=== PATIENT | female | born 1990 | race Caucasian/White ===

== ENCOUNTER 2017-11-15 00:30 | Inpatient (IN) | payer OTHER, MEDICAID, SELFPAY ==
[2017-11-14 22:41] VITALS: BMI 25.5
[2017-11-15] MEDS: Lactated Ringers 1,000 ML 50 ML IV ×3 (00:50→03:06)
[2017-11-15 01:07] LABS: Hematocrit 31.6 % (37-47); Hemoglobin 10.4 g/dl (12.0-15.0); Mean Corp Hgb Conc 32.9 g/gl (32-36); Mean Corpuscular Hgb 27.2 pg (27.0-32.0); Mean Corpuscular Volume 82.5 fL (81-99); Mean Platelet Vol. 10.8 fl (6.2-12.0); Platelet Count 176 K/mm3 (150-450); RBC Distribution Width SD 38.4 fl (35.1-43.9); Red Blood Count 3.83 M/mm3 (4.2-5.4); White Blood Count 12.6 K/mm3 (4.4-11.0)
[2017-11-15 01:09] LABS: Scan Indicated on CBC? Y/N NO
[2017-11-15] MEDS: fentaNYL-bupivacaine (epidural) 100 ML BAG EPIDURAL (02:12)
--- NOTE | 2017-11-15 03:07 | PCM.HP.OB ---
- Problem List (1) Postablative hypothyroidism Status: Chronic History Date of Admission: 11/15/17 Final DEVON: 11/17/17 Final DEVON Source: US <20 weeks Gestational age: 39 Weeks and 5 Days History of this : This is a 27 year-old, G [3], P [1], at 39 weeks gestational age presenting to triage reporting regular ctx q 2-3 minutes apart and worsening in strength and intensity. Patient was found to be 4-5cm with BBOW and requesting epidural. She denies any other complaints. Allergies latex Allergy (Verified 11/14/17 22:43) Hives Home Medications: Home Medications Levothyroxine [Synthroid] 112 mcg PO QWEEK 11/14/17 Levothyroxine [Synthroid] 224 mcg PO DAILY 11/14/17 Vits [Prenatabs FA ] 1 tab PO DAILY 11/14/17 Smoking Status: Never smoker Alcohol: None Number of Fetus(es): 1 Heart Tracin baseline, moderate variability, + accels, rare variable and early decels noted TOCO Analysis: Ctx q 2-5 minutes on tocometer, palpate moderate to strong in intensity History Past Pregnancies: Past Pregnancies Delivery Date Name GA/Weeks Outcome Route Weight Gender Labor Length Anesthesia Delivery Location Provider FOB 2012 Term Male 12 hours Epidural Labs: GBS Neg, H/H = 13.7/41.0 -->10.9/33.6, 1 hour GCT = 61, TSH = 0.322 (3rd trimester), FT4 = 1.5 (3rd trimester), Syphilis Screen = NR, Rubella = Immune, HepBsAg = Neg, HIV = NR, A+ bloodtype, Abs = Neg, GC/CT = Neg/Neg, Trich = Neg, Urine Culture = Neg, Urine Tox = Neg, Expected Delivery Method: Spontaneous Vaginal Describe any other labor & delivery plans:: Epidural planned Number of Visits: 15 Review of Systems Constitutional: Denies: Chills, Fever, Weight Change HEENT: Denies: Head Aches, Sinus Congestion, Sinus Drainage Cardiovascular: Denies: Chest Pain, Palpitations Respiratory: Denies: Cough, Shortness of breath at rest, Sputum production Gastrointestinal: Reports: Nausea. Denies: Abdominal Pain, Vomiting Genitourinary: Denies: Dysuria Gynecological: Denies: Vaginal discharge Musculoskeletal: Denies: Joint Pain, Joint Tenderness Skin: Denies: Rash, Wounds Neurological: Denies: Numbness, Tingling, Focal weakness Psychiatric: Denies: Anxiety, Depression, Homicidal Ideations, Suicidal Ideations Hematologic/ Lymphatic: Denies: Easy Bruising, Easy Bleeding Physical Exam General: Alert, Oriented x3, No apparent distress HEENT: Atraumatic, Normocephalic. 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 Negative for: Vulvar lesions Estimated gestational size: Appropriate for gestational size Presentation: Cephalic Cervix Dilation (cm): 4.5 - Cervical change to 6-7cm noted by RN at 1:40am Station: -2 Effacement (%): 80 Assessment/Plan This is a 27 year-old, G [3], P [1], at 39 weeks gestational age, Active Labor, Category I-II FHT P: 1 ) Patient admitted, IV started and admission bloodwork drawn 2) Epidural placed 3) Anticipate 4) Dr. España FOOD AND BEVERAGE ATTENDANT back-up physician notified of admission Cyn BEAL
--- NOTE | 2017-11-15 03:12 | HP.PCM_ITS ---
- Problem List (1) Postablative hypothyroidism Status: Chronic History Date of Admission: 11/15/17 Final DEVON: 11/17/17 Final DEVON Source: US <20 weeks Gestational age: 39 Weeks and 5 Days History of this : This is a 27 year-old, G [3], P [1], at 39 weeks gestational age presenting to triage reporting regular ctx q 2-3 minutes apart and worsening in strength and intensity. Patient was found to be 4-5cm with BBOW and requesting epidural. She denies any other complaints. Allergies latex Allergy (Verified 11/14/17 22:43) Hives Home Medications: Home Medications Levothyroxine [Synthroid] 112 mcg PO QWEEK 11/14/17 Levothyroxine [Synthroid] 224 mcg PO DAILY 11/14/17 Vits [Prenatabs FA ] 1 tab PO DAILY 11/14/17 Smoking Status: Never smoker Alcohol: None Number of Fetus(es): 1 Heart Tracin baseline, moderate variability, + accels, rare variable and early decels noted TOCO Analysis: Ctx q 2-5 minutes on tocometer, palpate moderate to strong in intensity History Past Pregnancies: Past Pregnancies Delivery Date Name GA/Weeks Outcome Route Weight Gender Labor Length Anesthesia Delivery Location Provider FOB 2012 Term Male 12 hours Epidural Labs: GBS Neg, H/H = 13.7/41.0 -->10.9/33.6, 1 hour GCT = 61, TSH = 0.322 (3rd trimester), FT4 = 1.5 (3rd trimester), Syphilis Screen = NR, Rubella = Immune, HepBsAg = Neg, HIV = NR, A+ bloodtype, Abs = Neg, GC/CT = Neg/Neg, Trich = Neg, Urine Culture = Neg, Urine Tox = Neg, Expected Delivery Method: Spontaneous Vaginal Describe any other labor & delivery plans:: Epidural planned Number of Visits: 15 Review of Systems Constitutional: Denies: Chills, Fever, Weight Change HEENT: Denies: Head Aches, Sinus Congestion, Sinus Drainage Cardiovascular: Denies: Chest Pain, Palpitations Respiratory: Denies: Cough, Shortness of breath at rest, Sputum production Gastrointestinal: Reports: Nausea. Denies: Abdominal Pain, Vomiting Genitourinary: Denies: Dysuria Gynecological: Denies: Vaginal discharge Musculoskeletal: Denies: Joint Pain, Joint Tenderness Skin: Denies: Rash, Wounds Neurological: Denies: Numbness, Tingling, Focal weakness Psychiatric: Denies: Anxiety, Depression, Homicidal Ideations, Suicidal Ideations Hematologic/ Lymphatic: Denies: Easy Bruising, Easy Bleeding Physical Exam General: Alert, Oriented x3, No apparent distress HEENT: Atraumatic, Normocephalic. Negative for: Thyromegaly, Lymphadenopathy Cardiovascular: Regular rate, Regular Rhythm Lungs: Normal air movement Abdomen: Soft, Non Tender, Non-Distended, Gravid, Appropriate for Gestational Age Neurological: Deep Tendon Reflexes 2+/4 and Symmetrical, Neuro grossly intact REPAIRER HANDTOOLS: Normal external genitalia. Negative for: Vulvar lesions Estimated gestational size: Appropriate for gestational size Presentation: Cephalic Cervix Dilation (cm): 4.5 - Cervical change to 6-7cm noted by RN at 1:40am Station: -2 Effacement (%): 80 Assessment/Plan This is a 27 year-old, G [3], P [1], at 39 weeks gestational age, Active Labor, Category I-II FHT P: 1 ) Patient admitted, IV started and admission bloodwork drawn 2) Epidural placed 3) Anticipate 4) Dr. [place] AGRICULTURAL APPRAISER back-up physician notified of admission Cyn BEAL
--- NOTE | 2017-11-15 03:23 | PCM.PN.BLA ---
Progress Note Addendum: Patient is comfortable after receiving epidural. She requests AROM at this time, patient found to be 9/100/0 with BBOW. AROM for blood-tinged pink and clear fluid. Category I FHT noted - reassuring. Anticipate . Cyn BEAL
[2017-11-15] MEDS: Oxytocin 30 units/NS 500 ml 30 UNITS/500 ML IV.SOLN 334 UNITS IV (05:42)
--- NOTE | 2017-11-15 05:57 | PCM.OB.VAG ---
- Problem List (1) Postablative hypothyroidism Status: Chronic Vaginal Delivery Maternal Presentation: Active Labor Patient presented in active labor to triage and progressed uneventfully to without complication Amniotic Fluid Description: Clear, Bloody Final DEVON: 11/17/17 Gestational age: 39 Weeks and 5 Days Date of Procedure: 11/15/17 Pre-Operative Diagnosis: Active Labor Post-Operative Diagnosis: of viable boy Surgery/ Procedure Performed: Spontaneous Vaginal Delivery Type of Anesthesia: Epidural - PLaced by Dr. Betts Description of Procedure: Patient progressed uneventfully to after epidural placement. Patient delivered viable boy baby over intact perineum at 0536. head delivered OA, restituted to RITO and then LOT. Anterior shoulder then delivered without difficulty followed by posterior shoulder and body. Infant placed on maternal abdomen where he was dried and stimulated. mouth and nose bulb suctioned. Infant had spontaneous cry and respirations. Apgars 9 and 10. Umbilical cord clamped and cut once it stopped pulsing by FOB. Placenta then delivered spontaneously via Mc mechanism intact with 3VC. Placental triage WNL. FF midline @ 1FB below umbilicus. IV pitocin given per protocol for active management of the 3rd stage. EBL = 150cc. Upon inspection of vaginal vault, bilateral periurethral abrasions noted with good hemostasis. No repair indicated. Sponge count correct. Vaginal sweep negative. Skin to skin initiated. discussed, patient had difficulties after her first delivery but is open to trying to breastfeed while in hospital. Cyn Reaves LIBRARY SERIALS ASSISTANT-CNM Presentation: Vertex, RITO Placental Delivery Description: Spontaneous Placenta Disposition: [facility] Cord Vessel Description: 3 Vessels Cord Entanglement: None Estimated Blood Loss: 150 Infant A gender: Male (1 minute): 9 (5 minute): 10 Episiotomy Description: None Laceration: None Medications given after delivery: IV Pitocin Complications: None
--- NOTE | 2017-11-15 06:09 | PCM.DCVAG ---
Discharge Diet: No Restrictions Discharge Activity: Return to Normal Activity, May not drive while taking narcotic pain medications., May Shower May resume sexual activity in: 4-6 weeks Additional Activity Instructions:: Nothing in the vagina for 4-6 weeks. You may return to work/school in 6 weeks. Call your doctor if your incision/area has: Continuous Slow Oozing, Sudden Increased Bleeding, Increased Pain/ Swelling, Increased Redness, Foul Smelling Discharge Call your doctor if you observe: Fever of 101 or Higher, Inability to urinate, Inability to have a bowel movement, Using more than one pad per hour Additional Instructions: If you experience any of the following, contact your healthcare provider. Bleeding that soaks a pad every hour for 2 hours Fever 100.4 or higher Unrelieved incision or abdominal pain Swelling, redness, discharge or bleeding from your incision or episiotomy site Your incision begins to separate Problems urinating (including inability to urinate or burning while urinating). Visual changes Severe headache Flu-like symptoms Pain or redness in one of both of your breasts Pain, warmth, tenderness or swelling in your legs, especially the calf area Frequent nausea and vomiting Symptoms of depression or anxiety If you experience any of the following, call 911 or go to the nearest Emergency Room. Chest pain Problems breathing Seizure activity Partial or complete paralysis of a body part, slurred speech, weakness or drooping of the face, or a sudden inability to walk or hold your balance Allergies/Adverse Reactions: Allergies latex Allergy (Verified 11/14/17 22:43) Hives Medications to take at Discharge Levothyroxine [Synthroid] 112 mcg PO QWEEK 11/14/17 Levothyroxine [Synthroid] 224 mcg PO DAILY 11/14/17 Vits [Prenatabs FA ] 1 tab PO DAILY 11/14/17 Acetaminophen [Tylenol] 1,000 mg PO Q8H PRN PRN tablet 11/15/17 Levothyroxine [Synthroid] 224 mcg PO DAILY@0600 tablet 11/15/17 Please Follow Up With: Cyn Reaves CNM When: Call to make an appointment with your doctor at 2 weeks and 6 weeks . If you had elevated Blood Pressure or 4th degree laceration you will need to be seen in 2 weeks. Please Follow Up With: Dr. Shewbridge When: After 6 weeks for reevaluation of thyroid levels Primary Care Physician: Lonny Valera,Out of [Primary Care Provider] - Test Results: Test results from this visit will be discussed in further detail at your follow-up appointment, if applicable.
[2017-11-15] MEDS: Oxytocin 30 units/NS 500 ml 30 UNITS/500 ML IV.SOLN 167 UNITS IV (06:12)
[2017-11-15] MEDS: Levothyroxine 112 MCG Tablet 224 MCG PO (07:05)
[2017-11-15] MEDS: 0.9% Saline Lock 10 ML Syringe IV (07:27)
[2017-11-15 08:00] VITALS: BP 116/74; PULSE 90; RESP 18; TEMP 36.4
[2017-11-15 11:26] VITALS: BP 108/62; PULSE 76; RESP 16; TEMP 36.8
--- NOTE | 2017-11-15 14:10 | NURSING ---
This nursing informatics clinical analyst reviewed the charting completed by Dion Yoder student nurse and it is complete.
[2017-11-15 16:00] VITALS: BP 98/66; PULSE 104; RESP 18; TEMP 37
[2017-11-15 20:17] VITALS: BP 100/70; PULSE 85; RESP 16; TEMP 36.8; O2SAT 98
[2017-11-15 23:56] VITALS: BP 94/59; PULSE 73; RESP 16; TEMP 36.9; O2SAT 99
[2017-11-16 03:35] VITALS: BP 95/56; PULSE 72; RESP 16; TEMP 37.2; O2SAT 98
[2017-11-16] MEDS: Levothyroxine 112 MCG Tablet 224 MCG PO (06:42)
--- NOTE | 2017-11-16 08:06 | PCM.PN.OB ---
Subjective: Patient resting in the bed at this time, denies any issues or complaints. Patient reports that baby is latching well at the breast and that she has not had pain. Patient desires discharge to home today. Objective: Nipples without cracks or blisters Abdomen NT x 4 quadrants, FF midline @ umbilicus Scant rubra lochia Intact perineum +2/4 reflexes in LE, no edema, no calf tenderness to palpation - Physical Exam General: Alert, Oriented x3, Cooperative HEENT: Atraumatic, Normocephalic Neck: Supple Lungs: Normal air movement Cardiovascular: Regular rate, No murmurs Abdomen: Soft, Non Tender Extremities: No edema, Capillary Refill Less than 3 Seconds Skin: No rashes, No breakdown Musculoskeletal: No Tenderness to Palpation of Joints or Extremities Neurological: Cranial nerves II-XII grossly intact Psych/Mental Status: Normal Affect, Appropriate Vital Signs Temp Pulse Resp BP Pulse Ox 98.9 F 72 16 95/56 L 98 11/16/17 03:35 11/16/17 03:35 11/16/17 03:35 11/16/17 03:35 11/16/17 03:35 Oxygen Delivery Method Room Air Weight: 131 lb Body Mass Index (BMI) 25.5 Intake and Output for Last 24 Hours 11/14/17 11/15/17 11/16/17 23:59 23:59 23:59 Output Total 1899 / 1899 Balance -1900 / -1899 Medical Necessity - Tobacco Use Smoking Status: Never smoker Assessment/Plan A: 27 y/o PPD #1 s/p , Normal Course P: 1) Discharge to home pending discharge 2) RTC at 2 and 6 weeks PP to [facility] Cyn BEAL
[2017-11-16 09:18] VITALS: BP 97/65; PULSE 82; RESP 18; TEMP 36.8
[2017-11-16 12:35] VITALS: BP 97/65; PULSE 82; RESP 18; TEMP 36.8
== END 2017-11-16 12:35 | disposition home or self-care (01) | DRG 775 ==
LOC: WPOUT 00:34
PROVIDERS: Admitting Provider Obstetrics & Gynecology; Visit Provider Obstetrics & Gynecology
DX: O99.284 Endocrine, nutritional and metabolic diseases complicating childbirth (principal); E89.0 Postprocedural hypothyroidism; O99.02 Anemia complicating childbirth; Z79.899 Other long term (current) drug therapy; Z3A.39 39 weeks gestation of pregnancy; Z37.0 Single live birth
CPT/HCPCS: 59025; 59050; 85027; 86850; 86900; 99218; J7120; A4216; G0378

== ENCOUNTER 2018-10-07 16:50 | Inpatient (IN) | payer MEDICAID, SELFPAY ==
[2018-10-07 10:01] VITALS: BMI 24.5
--- NOTE | 2018-10-07 12:10 | OB.TRI.NOTE ---
History of Present Illness Was patient seen by the physician?: Yes Reason For Visit: R/O LABOR Date of Service: 10/07/18 Final DEVON: 10/17/18 Final DEVON Source: US <20 weeks Gestational age: 38 Weeks and 4 Days Allergies Iodinated Contrast- Oral and IV Dye Allergy (Verified 10/07/18 10:06) Other pt states mother and maternal grandmother had anaphalxis with contrast MRI and pt has been advised to not take latex Allergy (Verified 11/14/17 22:43) Hives NST - FHR Rate Baby A Baseline: 120 Variability:: Moderate Accelerations:: 15 x 15 Decelerations:: None NST Reactive:: Yes Uterine Activity:: Q 2-5 minutes Impression/Plan Reactive NST for false labor (Tracing of HR in 60's intermittently is thought to be a mechanical error and not heart tracing
[2018-10-07 17:33] LABS: Absolute Lymphocyte Count 1.64 X10^3/uL (0.83-4.51); Absolute Neutrophil Count 8.1 X10^3/uL (2.0-7.7); Basophil# 0.04 X10^3/uL; Basophil% 0.4 % (0-1); Eosinophil# 0.26 X10^3/uL; Eosinophils% 2.5 % (0-5); Hematocrit 31.3 % (37-47); Lymphocyte # 1.64 X10^3/ul (4.0); Lymphocyte % 15.6 % (19-41); Mean Corp Hgb Conc 31.9 g/dL (32-36); Mean Corpuscular Hgb 24.9 pg (27.0-32.0); Mean Corpuscular Volume 77.9 fL (81-99); Mean Platelet Vol. 10.6 fl (6.2-12.0); Monocyte# 0.46 X10^3/uL; Monocyte% 4.4 % (0-10); NRBC Flagged by Analyzer 0 % (0-5); Neutrophil # 8.05 X10^3/uL (2.7-7.7); Neutrophil % 76.4 % (47-70); Platelet Count 202 K/mm3 (150-450); RBC Distribution Width CV 14.7 % (11.6-14.6); RBC Distribution Width SD 41.4 fl (35.1-43.9); Red Blood Count 4.02 M/mm3 (4.2-5.4); White Blood Count 10.5 K/mm3 (4.4-11.0)
[2018-10-07] MEDS: Oxytocin 30 units/NS 500 ml 30 UNITS/500 ML IV.SOLN 334 UNITS IV (17:37)
[2018-10-07] MEDS: Ketorolac 30 MG/ML Syringe IM (17:40)
--- NOTE | 2018-10-07 17:47 | HP.PCM_ITS ---
History Date of Admission: 10/07/18 Final DEVON: 10/17/18 Final DEVON Source: US <20 weeks Gestational age: 38 Weeks and 4 Days History of this : This is a 28 year-old, G [], P [], at weeks gestational age. Medical History: Medical History (Last Updated 10/07/18 @ 17:51 by Jarek Farias) Depression F32.9 Hypothyroid E03.9 Allergies Iodinated Contrast- Oral and IV Dye Allergy (Verified 10/07/18 10:06) Other pt states mother and maternal grandmother had anaphalxis with contrast MRI and pt has been advised to not take latex Allergy (Verified 11/14/17 22:43) Hives Home Medications: Home Medications Levothyroxine [Synthroid] 137 mcg PO DAILY 11/14/17 Vits [Prenatabs FA ] 1 tab PO DAILY 11/14/17 Smoking Status: Never smoker Alcohol: None History Past Pregnancies: Past Pregnancies Delivery Date Name GA/Weeks Outcome Route Weight Gender Labor Length Anesthesia Delivery Location Provider FOB Labs: See [facility] H&P Physical Exam General: Alert, Oriented x3 Abdomen: Soft, Non Tender, Non-Distended, Gravid Neurological: Cranial nerves II-XII grossly intact STEAM CLEAN 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 Patient presented in labor & had - please see delivery note. GBS negative.
--- NOTE | 2018-10-07 17:59 | PCM.OPRPT ---
Vaginal Delivery Maternal Presentation: Active Labor Amniotic Membrane Rupture Type: Artificial Amniotic Fluid Description: Clear Final DEVON: 10/17/18 Gestational age: 38 Weeks and 4 Days Date of Procedure: 10/07/18 Pre-Operative Diagnosis: Labor Post-Operative Diagnosis: Labor Surgery/ Procedure Performed: Spontaneous Vaginal Delivery Type of Anesthesia: None Description of Procedure: Patient prepped & draped when C/C/+1. She pushed to delivered the head. head was gently guided to allow delivery of anterior and posterior shoulders. No excess traction placed on head. Body delivered & placed on maternal abdomen. 3VC clamped & cut in delayed fashion. Placenta delivered with gentle traction. Good uterine tone obtained Presentation: DIANA Placental Delivery Description: Expressed Placenta Disposition: [facility] Cord Vessel Description: 3 Vessels Cord Entanglement: None Estimated Blood Loss: 200ml Infant A gender: Female (1 minute): 9 (5 minute): 9 Episiotomy Description: None Laceration: None Medications given after delivery: IV Pitocin Complications: None
[2018-10-07] MEDS: Oxytocin 30 units/NS 500 ml 30 UNITS/500 ML IV.SOLN 167 UNITS IV (18:07)
[2018-10-07] MEDS: Lactated Ringers 1,000 ML 50 ML IV (18:10)
[2018-10-07] MEDS: 0.9% Saline Lock 10 ML Syringe IV (19:08)
[2018-10-07 19:29] VITALS: BP 107/74; PULSE 86; RESP 18; TEMP 36.9
--- NOTE | 2018-10-07 22:03 | NURSING ---
At 2120, patient up to bathroom with stand by assist. Pt voided 150cc clear pink urine with clots. Pt had kiwi sized clot on pad, but no additional bleeding. Will continue to monitor.
[2018-10-07 23:54] VITALS: BP 97/65; PULSE 70; RESP 18; TEMP 36.7
[2018-10-08 04:18] VITALS: BP 101/67; PULSE 72; RESP 16; TEMP 36.6
[2018-10-08 07:55] VITALS: BP 91/57; PULSE 82; RESP 16; TEMP 37.2
--- NOTE | 2018-10-08 07:59 | NURSING ---
Periurethral abrasions.
--- NOTE | 2018-10-08 08:46 | PN.OBGYN_ITS ---
Subjective: Doing well per patient and nursing staff. Ambulating and taking PO without difficulty. Voiding and passing flatus. bottle feeding, no complaints. Denies any increased vaginal bleeding, lochia normal. Pain controlled. Planning D/C home today. - Physical Exam General: Alert, Oriented x3, Cooperative HEENT: Atraumatic, Normocephalic Neck: Trachea Midline Lungs: Clear to auscultation, Normal air movement, No rhonchi, No wheeze Cardiovascular: Regular rate, Regular Rhythm, No murmurs Abdomen: Bowel Sounds Present, - - Fundus firm below umbilicus, appropriately tender Extremities: No edema Psych/Mental Status: Normal Affect, Appropriate Vital Signs Temp Pulse Resp BP 99 F 82 16 91/57 L 10/08/18 07:55 10/08/18 07:55 10/08/18 07:55 10/08/18 07:55 Oxygen Delivery Method Room Air Weight: 125 lb 10.616 oz Body Mass Index (BMI) 24.5 Laboratory Tests Past 24 Hrs 10/07/18 10/07/18 17:10 17:10 WBC 10.5 RBC 4.02 L Hgb 10.0 L Hct 31.3 L MCV 77.9 L MCH 24.9 L MCHC 31.9 L RDW Std Deviation 41.4 RDW Coeff of Pranav 14.7 H Plt Count 202 MPV 10.6 Immature Gran % (Auto) 0.700 Neut % (Auto) 76.4 H Lymph % (Auto) 15.6 L [place] % (Auto) 4.4 Eos % (Auto) 2.5 Baso % (Auto) 0.4 Absolute Neuts (auto) 8.1 H Absolute Lymphs (auto) 1.64 Nucleated RBC % 0 Blood Type A POSITIVE Antibody Screen NEGATIVE Medical Necessity - Tobacco Use Smoking Status: Never smoker Assessment/Plan A: PPD #1 P: 1) Routine care. Discharge instructions reviewed. 2) Declines pain medication RX, will use OTC 3) Follow up in 2 weeks and 6 weeks .
--- NOTE | 2018-10-08 08:50 | DCINST_ITS ---
Discharge Diet: No Restrictions Discharge Activity: Return to Normal Activity, May Drive, May Shower, May Take a Tub Bath May resume sexual activity in: 4-6 weeks Weight Bearing Status: Full weight bearing Additional Activity Instructions:: Nothing in the vagina for 4-6 weeks. You may return to work/school in 6 weeks. Call your doctor if your incision/area has: Continuous Slow Oozing, Sudden Increased Bleeding, Increased Pain/ Swelling, Increased Redness, Foul Smelling Discharge Call your doctor if you observe: Fever of 101 or Higher, Inability to urinate, Inability to have a bowel movement, Using more than one pad per hour, Shortness of breath, Chest pain, Increased palpitations (irregular heartbeat), Uncontrolled pain Instructions: After a Vaginal Additional Instructions: If you experience any of the following, contact your healthcare provider. * Bleeding that soaks a pad every hour for 2 hours * Fever 100.4 or higher * Unrelieved incision or abdominal pain * Swelling, redness, discharge or bleeding from your incision or episiotomy site * Your incision begins to separate * Problems urinating (including inability to urinate or burning while urinating). * Visual changes * Severe headache * Flu-like symptoms * Pain or redness in one of both of your breasts * Pain, warmth, tenderness or swelling in your legs, especially the calf area * Frequent nausea and vomiting * Symptoms of depression or anxiety If you experience any of the following, call 911 or go to the nearest Emergency Room. * Chest pain * Problems breathing * Seizure activity * Partial or complete paralysis of a body part, slurred speech, weakness or drooping of the face, or a sudden inability to walk or hold your balance Allergies/Adverse Reactions: Allergies Iodinated Contrast- Oral and IV Dye Allergy (Verified 10/07/18 10:06) Other pt states mother and maternal grandmother had anaphalxis with contrast MRI and pt has been advised to not take latex Allergy (Verified 11/14/17 22:43) Hives Medications to take at Discharge Levothyroxine [Synthroid] 137 mcg PO DAILY 11/14/17 Vits [Prenatabs FA ] 1 tab PO DAILY 11/14/17 Please Follow Up With: Jarek Farias When: Call to make an appointment with your doctor in 2 weeks and 6 weeks. Primary Care Physician: Care Physician,No Primary [Primary Care Provider] - Test Results: Test results from this visit will be discussed in further detail at your follow- up appointment, if applicable.
[2018-10-08 12:00] VITALS: BP 101/64; PULSE 80; RESP 16; TEMP 36.9; O2SAT 98
[2018-10-08 15:28] VITALS: BP 99/65; RESP 16; TEMP 36.8; O2SAT 98
[2018-10-08 19:15] VITALS: BP 99/70; PULSE 85; RESP 16; TEMP 36.9; O2SAT 99
== END 2018-10-08 19:30 | disposition home or self-care (01) | DRG 560 ==
PROVIDERS: Admitting Provider Obstetrics & Gynecology; Referring Provider Obstetrics & Gynecology; Visit Provider Obstetrics & Gynecology
DX: O99.284 Endocrine, nutritional and metabolic diseases complicating childbirth (principal); E03.9 Hypothyroidism, unspecified; Z37.0 Single live birth; Z79.890 Hormone replacement therapy; Z3A.38 38 weeks gestation of pregnancy
CPT/HCPCS: 59025; 59050; 85025; 86850; 86900; 99218; J7120; A4216; G0378